=== PATIENT | male | born 1945 | race Caucasian/White ===

== ENCOUNTER 2024-12-01 21:36 | Emergency (ER) | payer MEDICARE, OTHER, SELFPAY ==
[2024-12-01 21:44] VITALS: BP 155/84
[2024-12-01 22:05] LABS: % Eosinophils 8.8 % (0-6); % Immature Granulocytes 0.3 % (0-0.5); % Lymphocytes 33.8 % (20.5-51.1); % Monocytes 9.5 % (1.7-9.3); % Neutrophils 46.6 % (42.2-75.2); Absolute Basophils 0.1 10^3/uL (0-0.2); Absolute Eosinophils 0.7 10^3/uL (0-0.7); Absolute Lymphocytes 2.5 10^3/uL (1.2-3.4); Absolute Monocytes 0.7 10^3/uL (0.1-0.6); Absolute Neutrophils 3.4 10^3/uL (1.4-6.5); Hemoglobin 13.3 g/dL (13.0-18.0); Mean Corp Hgb Conc. 34.1 g/dL (33.0-37.0); Mean Corpuscular Hgb 30.9 pg (27.0-31.0); Mean Corpuscular Volume 90.7 fL (80.0-94.0); Mean Platelet Volume 10.1 fL (7.4-10.4); Nucleated Red Blood Cells % 0 % (-); Platelet Count 221 10^3/uL (130-400); Red Cell Dist. Width 12.9 % (11.5-14.5); White Blood Cell Count 7.4 10^3/uL (4.8-10.8)
[2024-12-01 22:22] LABS: ALT (SGPT) 21 U/L (0-50); AST (SGOT) 22 U/L (17-59); Albumin 4.1 g/dl (3.5-5.0); Alkaline Phosphatase 46 U/L (38-126); Blood Urea Nitrogen 25 mg/dl (9-20); Calcium 9.9 mg/dl (8.4-10.2); Carbon Dioxide 24 mmol/L (22-30); Chloride 111 mmol/L (98-107); Glucose 100 mg/dl (70-99); Potassium 4.8 mmol/L (3.5-5.1); Sodium 140 mmol/L (135-145); Total Bilirubin 0.3 mg/dl (0.2-1.3); Total Protein 6.8 g/dl (6.3-8.2); eGFR > 60.00
[2024-12-01 23:43] VITALS: BP 190/83
[2024-12-02] VITALS: BP 148/92
--- NOTE | 2024-12-02 | ED.GENMED ---
History of Present Illness
General
Chief Complaint: Change in Mental Status
Source: patient and spouse
Exam Limitations: clinical condition and altered mental status
Time Seen by Provider: 12/01/24 23:13
Nursing documentation reviewed up to this point in time: agreed with
History of Present Illness
History of Present Illness:
79-year-old male presents to the emergency department with confusion. Patient was seen by his primary care provider today after discovering a 'mass 'on the side of his neck. His PCP ordered an outpatient ultrasound. Patient was able to drive home
after scheduling the ultrasound appointment. Patient at home, he states that he felt out of it. reported that he is very sluggish with his responses to her questions. Patient was not slurring his words. She did not describe any aphasia. He
just was very slow to answer questions. She states that this is atypical for him. Patient denies headache or blurry vision. Denies fever or chills. Reports no chest pain or shortness of breath. He does complain of the left neck mass.
Review of Systems
Review of Systems
Allergies reviewed?: Yes
All Other Systems: ROS reviewed and negative except as documented in HPI and ROS
Constitutional: Reports no symptoms
EENT: Reports other (Left-sided neck mass)
Respiratory: Reports no symptoms
Cardiac: Reports no symptoms
ABD/GI: Reports no symptoms
: Reports no symptoms
Musculoskeletal: Reports no symptoms
Skin: Reports no symptoms
Neurological: Reports no symptoms
Endocrine: Reports no symptoms
Hematologic/Lymphatic: Reports no symptoms
Psychiatric: Reports no symptoms
Phy Exam
General Physical Exam
General Presentation: well appearing and no apparent distress
General Skin: warm and dry
General Habitus: normal
General Mental: alert
General Hydration: appears well hydrated
ENT Exam
ENT Exam: EOMI, pharynx normal, neck supple and normocephalic
Eye Exam
Eye Exam: PERRL, cornea clear and conjunctiva normal
Cardiovascular Exam
Cardiovascular Exam: regular rate/rhythm, no edema, no murmur and normal peripheral pulses
Pulmonary Exam
Pulmonary Exam: lungs clear, no respiratory distress, no rales, no crackles, no rhonchi, no stridor, no wheezing and no cough
Gastrointestinal Exam
Gastrointestinal Exam: normal bowel sounds, non tender, soft, no organomegaly, no pulsatile mass and non distended
Neurological Exam
Neurological Exam: alert, oriented x3, no motor deficits and speech normal
NIH Stroke Score
Level of Consciousness: 0 - Alert
LOC questions: 0-Answers both correctly
LOC Commands: 0-Performs both correctly
Best Gaze: 0-Normal
Visual Maria: 0=Normal, no visual loss
Facial palsy: 0=Normal, symmetrical
Motor - Right Arm: 0=No drift 10 seconds
Motor - Left Arm: 0=No drift 10 seconds
Motor - Right Le-No drift 5 seconds
Motor - Left Le-No drift 5 seconds
Limb Ataxia: 0-Absent
Sensation: 0-Normal
Best Language: 0-No aphasia
Dysarthria: 0-Normal
Extinction and Inattention: 0-No abnormality
Total Score:: 0
Musculoskeletal Exam
Musculoskeletal Exam: full ROM and no edema
Skin Exam
Skin Exam: normal color, warm/dry, no rash and no petechia
Psychiatric Exam
Psychiatric Exam: normal mood/affect
Course
Orders/Labs/Results
Orders:
Orders
12/01/24 21:52
Complete Blood Count/With Diff Urgent
Comprehensive Metabolic Panel Urgent
12/01/24 23:14
CT Head W/o Iv Contrast Urgent
Comment:
Reason For Exam: Altered mental status, dizziness, stumbling
12/02/24
CT Head & Neck Angio W/wo IV Urgent
Reason For Exam: left neck 'mass', confusion
Abnormal Lab Results
12/01/24
21:52
RBC 4.30 L 10^6/uL
(4.70-6.10)
Absolute Monos (auto) 0.7 H 10^3/uL
(0.1-0.6)
Monocytes % 9.5 H %
(1.7-9.3)
Eosinophils % 8.8 H %
(0-6)
Chloride 111 H mmol/L
(98-107)
BUN 25 H mg/dl
(9-20)
Glucose 100 H mg/dl
(70-99)
12/01/24 21:52
12/01/24 21:52
Vital Signs
Initial and Last Documented VS:
Initial Vital Signs
Temp Pulse Resp BP Pulse Ox
98.4 F 64 16 155/84 95
12/01/24 21:44 12/01/24 21:44 12/01/24 21:44 12/01/24 21:44 12/01/24 21:44
Last Documented Vital Signs
Temp Pulse Resp BP Pulse Ox
98.4 F 60 14 157/82 97
12/01/24 21:44 12/02/24 02:40 12/02/24 01:00 12/02/24 02:40 12/02/24 02:40
*Critical Care Note
Total Time (30-74mins, 75-104mins- exclusive of procedures): Not Applicable
Update Note
Update Note:
NAME: JORGE HOPKINS
DATE OF EXAM: 12/02/2024
Patient No: [id number]
Physician: BELGICA^Maddi
Date of : 1945
Past Medical History (entered by Technologist):
Reason For Exam (entered by Technologist):
Other Notes (entered by Technologist): Pt states he found a 'nodule' on the left side of his neck, went to his PCP this afternoon, who ordered a carotid US. Pt came home and 'felt out of it', per took longer time to respond and seemed to be
staring off into space. Pt also fell in the den by missing a step. Pt denies dizziness, denies headache. Denies any weakness/numbness/tingling.
Additional Information (per Vision Radiologist):
CTA HEAD, CTA NECK
IMPRESSION:
CTA HEAD:
No large vessel occlusion or critical stenosis within the anterior or posterior circulation.
CTA NECK:
No large vessel occlusion or critical stenosis within the anterior or posterior circulation.
At least 70% narrowing at the origin of the right internal carotid artery secondary to calcified and noncalcified atherosclerotic plaque.
Please finalized at 2:04 AM ET
Discussed CTA with patient and . He states that symptoms have resolved. He went to the bathroom and had no issues. Wishes to be discharged home. I did offer him admission for further testing. At this time he refuses. He does have a family
doctor's appointment scheduled for the near future. I did discuss return to ER instructions at length. He and his have no further questions. Being discharged in improved condition.
ED Attending Note
-
Portions of this chart may have been created with voice recognition software.� Occasional wrong word or��sound alike� substitutions may have occurred due to the inherent limitations of voice recognition software.
Discharge Plan
Departure
Patient Disposition: Home (Routine Discharge)
Date of Disposition: 12/02/24
Time of Disposition: 02:35
Patient with high blood pressure during this ER visit?: Yes
Discharge Problem:
Neck complaint
Instructions: Fatigue (DC)
Referrals:
Noah Bustamante MD [Active] -
Johnnie Donahue MD [Family Provider] -
Activity Restrictions/Additional Instructions:
Please keep your appointment for outpatient ultrasound.
Thank You for choosing [facility].
It was a pleasure meeting you and taking part in your care. We hope for your continued healing and wellness.
Please read discharge instructions in their entirety. However, they are for general education and may not describe your exact diagnosis at discharge. Information on your ER visit and medical conditions were discussed with you along with appropriate
follow up information...
If indicated, please take your medications as instructed and indicated on discharge paperwork.
Please schedule a follow up appointment as directed. Call to schedule an appointment
Please return to the emergency department with ANY change in, persisting, or worsening of symptoms. If any of your symptoms do not improve, or persist, or become more severe within 6-12 hours, please return to the emergency department for further
care.
Please return to the emergency department if you develop a headache, neck pain/stiffness, fever greater than 100.4F, chest pain, shortness of breath, persistent nausea, vomiting, slurred speech, difficulty walking, numbness/tingling, weakness, signs
of infection or any other symptoms that are worrisome to you.
If you have any questions or concerns please do not hesitate to call the Hospital at or E-mail me directly at [email or web address]
Interventions
Interventions:
*Risk Screen - Suicide Last Done: 12/01/24 21:48
*General Assessment Last Done: 12/02/24 02:40
*Neglect/Abuse Screening Last Done: 12/01/24 21:48
*ED- Fall Risk Assessment Last Done: 12/02/24 02:40
*ED COVID-19 Vaccine History Last Done: 12/02/24 02:40
*Nursing Disposition Last Done: 12/02/24 02:40
ED-Skin Assessment Last Done: 12/01/24 22:00
ED- Pulmonary Assessment Last Done: 12/02/24 02:40
ED-Psychological Assessment Last Done: 12/02/24 02:40
ED- Neurological Assessment Last Done: 12/01/24 22:00
ED-Musculoskeletal Assessment Last Done: 12/01/24 22:00
ED- Cardiac Assessment Last Done: 12/02/24 02:40
ED Swallowing Screen Last Done: 12/02/24 02:48
Discharge Date and Time
Discharge Date/Time: 12/02/24 02:49
Print Language: VIETNAMESE
[2024-12-02 01:00] VITALS: BP 156/85
[2024-12-02 02:40] VITALS: BP 157/82
== END 2024-12-02 02:49 | disposition home or self-care (01) ==
LOC: EMR 21:36
PROVIDERS: Emergency Medicine; EMERGENCY PHYSICIAN Student in an Organized Health Care Education/Training Program; FAMILY PHYSICIAN Internal Medicine
DX: R22.1 Localized swelling, mass and lump, neck (principal); W10.9XXA Fall (on) (from) unspecified stairs and steps, initial encounter; R03.0 Elevated blood-pressure reading, without diagnosis of hypertension
CPT/HCPCS: 99285; 70450; 70496; 70498; 80053; 85025; Q9967

== ENCOUNTER 2024-12-04 14:08 | Inpatient (IN) | payer MEDICARE, OTHER, SELFPAY ==
[2024-12-03] VITALS (7 sets, daily range): BP systolic 125–176; BP diastolic 71–128; PULSE 60–85; BMI 19.4
[2024-12-03 12:43] LABS: % Basophils 1.1 % (0-2); % Eosinophils 4.2 % (0-6); % Immature Granulocytes 0.5 % (0-0.5); % Lymphocytes 18.6 % (20.5-51.1); % Neutrophils 69.6 % (42.2-75.2); Absolute Basophils 0.1 10^3/uL (0-0.2); Absolute Eosinophils 0.3 10^3/uL (0-0.7); Absolute Lymphocytes 1.2 10^3/uL (1.2-3.4); Absolute Monocytes 0.4 10^3/uL (0.1-0.6); Absolute Neutrophils 4.5 10^3/uL (1.4-6.5); Blood Urea Nitrogen 25 mg/dl (9-20); Calcium 10.2 mg/dl (8.4-10.2); Carbon Dioxide 23 mmol/L (22-30); Chloride 107 mmol/L (98-107); Glucose 131 mg/dl (70-99); Hematocrit 44.6 % (39.0-52.0); Hemoglobin 15.1 g/dL (13.0-18.0); Mean Corp Hgb Conc. 33.9 g/dL (33.0-37.0); Mean Corpuscular Hgb 30.8 pg (27.0-31.0); Mean Corpuscular Volume 90.8 fL (80.0-94.0); Nucleated Red Blood Cells % 0 % (-); Red Blood Cell Count 4.91 10^6/uL (4.70-6.10); Red Cell Dist. Width 13.1 % (11.5-14.5); Sodium 140 mmol/L (135-145); White Blood Cell Count 6.5 10^3/uL (4.8-10.8); eGFR > 60.00
--- NOTE | 2024-12-03 16:24 | ED.GENMED ---
History of Present Illness
General
Chief Complaint: Change in Mental Status
Source: patient
Exam Limitations: none
Time Seen by Provider: 12/03/24 16:02
Nursing documentation reviewed up to this point in time: agreed with
History of Present Illness
History of Present Illness:
Patient to ED with complaint of increasing confusion. He was seen in ED 2 days ago for same, offered admission but declined. states confusion is worsening. Today he was unable to dress without assistance---trying to put both legs into same
pant leg, unable to tie his shoes. Brought to ED by spouse and son. He is awake and alert but states he doesnt 'feel right', knows that he is forgetting things that should come easy to him. Denies fever/chills, recent illness. No n/v/d. No SOB,
CP/pressure. No headache or dizziness
Past History
Past History
ED Past Medical History: Asthma and Hypercholesterolemia (new, no current medication)
ED Past Surgical History: Other (nasal polyp surgery, prostate surgery)
Social History
Tobacco: Non-smoker
Alcohol: None
Drug: None
Personal:
Living: with family
Review of Systems
Review of Systems
Allergies reviewed?: Yes
All Other Systems: ROS reviewed and negative except as documented in HPI and ROS
Constitutional: Reports no symptoms
EENT: Reports no symptoms
Respiratory: Reports no symptoms
Cardiac: Reports no symptoms
ABD/GI: Reports no symptoms
: Reports no symptoms
Musculoskeletal: Reports no symptoms
Skin: Reports no symptoms
Neurological: Reports other (increasing confusion and forgetfulness)
Psychiatric: Reports no symptoms
Phy Exam
General Physical Exam
General Presentation: well appearing and no apparent distress
General age: appears stated age
General Skin: warm and dry
General Habitus: normal
General Mental: alert
Cardiovascular Exam
Cardiovascular Exam: regular rate/rhythm and no edema
Pulmonary Exam
Pulmonary Exam: lungs clear and no respiratory distress
Neurological Exam
Neurological Exam: alert, oriented x3, CN II-XII intact, no motor deficits, no sensory deficits and speech normal
NIH Stroke Score
Level of Consciousness: 0 - Alert
LOC questions: 0-Answers both correctly
LOC Commands: 0-Performs both correctly
Best Gaze: 0-Normal
Visual Maria: 0=Normal, no visual loss
Facial palsy: 0=Normal, symmetrical
Motor - Right Arm: 0=No drift 10 seconds
Motor - Left Arm: 0=No drift 10 seconds
Motor - Right Le-No drift 5 seconds
Motor - Left Le-No drift 5 seconds
Limb Ataxia: 0-Absent
Sensation: 0-Normal
Best Language: 0-No aphasia
Dysarthria: 0-Normal
Extinction and Inattention: 0-No abnormality
Total Score:: 0
Musculoskeletal Exam
Musculoskeletal Exam: full ROM and neuro vasc intact
Skin Exam
Skin Exam: normal color, warm/dry and no rash
Psychiatric Exam
Psychiatric Exam: normal mood/affect
Course
Orders/Labs/Results
Orders:
Orders
12/03/24 12:23
Basic Metabolic Panel Urgent
Complete Blood Count/With Diff Urgent
Erythrocyte Sed Rate Urgent
Comment: ADDON
12/03/24 Dinner
Cholesterol Lowering
At Your Request: Full Participation
Does patient need a safe tray?: No
12/03/24 16:39
Urinalysis Reflex To Culture Urgent
Date Specimen was Collected: 12/04/24
Time Specimen was Collected: 05:52
12/03/24 17:44
Admit/Transfer Patient As Directed
Co-Sign Provider:
Level of Care: Observation services
Assign to:: Telemetry
Physician / Group: Ti
Diagnosis: Memory loss, carotid stenosis
Reason for Telemetry: Arrhythmia
Date to Stop Telemetry: 12/06/24
Time to Stop Telemetry: 11:00
12/03/24 17:45
PRN Pain Medication Management As Directed
May give lesser potent ordered pain med per pt: Yes
preference::
Protocol:: Medication orders for pain may be administered in a
manner that supports deferring to patient preference
when the pt is:
- Requesting an ordered lesser potent pain medication.
Least to most potent pain medications are defined
as: acetaminophen < NSAID < tramadol < opioids
(morphine, oxycodone, hydromorphone).
- Requesting a lesser dose of the same medication IF
ORDERED.
- Requesting a less intrusive route of administration
if both routes are prescribed by the provider (PO <
IV).
12/03/24 17:46
Code Status As Directed
Resuscitation Status: Do not resuscitate
Reached after discussion with pt or family/Healthcare POA: Yes
DNR Bracelet Application ONCE
12/03/24 19:48
Acetaminophen [Tylenol] 650 mg PO Q6HPRN PRN
Albuterol [ProAIR HFA INHALER] 2 puff INH R Q4HPRN PRN
Aspirin Low Dose EC [Aspir Low (Enteric Coated)] 81 mg PO DAILY
Enoxaparin Sodium [Lovenox] 40 mg SC QPM
Rosuvastatin Calcium [Crestor] 10 mg PO QPM
12/03/24 19:48
Add On- LAB Routine
Tests Added?: TSH, B12, folate, ESR, RPR
NEUROLOGY CONSULT Routine
Consulting Provider: Huang Ford
Was physician already notified: Yes
SURGICAL CONSULT Routine
Consulting Provider: Beena Acosta
Was physician already notified: Yes
Activity As Directed
Activity Level: Ambulate
Orthostatic Vital Signs As Directed
Orthostatic VS Frequency: Daily
DX Deep Vein Thrombosis Video Routine
12/03/24 20:00
Flush (0.9% Sodium Chloride) [Flush (Nss)] See Dose Instructions IV PER PROTOCOL
Fluticasone/Salmeterol 45/21 [Advair Hfa 45/21 Mcg Inhaler] 2 puff INH R BID
12/03/24 20:18
Pt Screening Request from Jt Routine
12/04/24
Electrocardiogram (*1) Stat
Reason for Study: Chest Pain
Comment: DONE NO ORDER ENTERED
12/04/24 05:57
Urine Microscopic Reflex Cult Urgent
12/04/24 06:55
Folate Routine
Lipid Profile [Cardiovascular Evaluation] IN AM
Syphilis/T. pallidum Ab Reflex Routine
TSH Routine
Vitamin B12 Routine
Comment: FOL
12/04/24 08:00
Montelukast Sodium [Singulair] 10 mg PO DAILY
12/04/24 08:30
Request for Physical Therapy [NOTICE] Routine
12/04/24 10:20
MRI Brain [MR Brain Without Contrast] Routine
Comment:
Reason For Exam: confusion, carotid stenosis
Recent pill cam endoscopy?: No
12/04/24 10:21
Physical Therapy Consult [Pt Eval And Treat] Routine
Activity Level: Ambulate
12/04/24 10:26
OT Consult [Ot Eval And Treat] Routine
12/06/24 11:00
DC Protocol for Telemetry ONCE
Abnormal Lab Results
12/03/24 12/04/24 12/04/24
12:23 05:57 06:55
Lymphocytes % 18.6 L %
(20.5-51.1)
ESR 25 H mm/hour
(0-20)
BUN 25 H mg/dl
(9-20)
Glucose 131 H mg/dl
(70-99)
Total Cholesterol 229 H mg/dl
(50-199)
Urine Albumin (Reflex) 1+ A
(Neg - Trace)
12/03/24 12:23
12/03/24 12:23
Vital Signs
Initial and Last Documented VS:
Initial Vital Signs
Temp Pulse Resp BP Pulse Ox
97.8 F 74 18 152/88 98
12/03/24 12:11 12/03/24 12:11 12/03/24 12:11 12/03/24 12:11 12/03/24 12:11
Last Documented Vital Signs
Temp Pulse Resp BP Pulse Ox
98.0 F 73 18 127/70 97
12/04/24 11:20 12/04/24 11:20 12/04/24 11:20 12/04/24 11:20 12/04/24 11:20
*Critical Care Note
Total Time (30-74mins, 75-104mins- exclusive of procedures): Not Applicable
Update Note
Update Note:
Patient to ED with complaint of increasing forgetfulness and confusion. Seen in ED 2 nights ago for same, declined admission at that time. Attemtped to follow up with neurololgy but next availabe appt is for Aug 2025. Family reports symptoms are
worsening.Forgetting simple routine tasks. WIll admit to hospitalist sasha for change in mental status.
ED Attending Note
-
Portions of this chart may have been created with voice recognition software.� Occasional wrong word or��sound alike� substitutions may have occurred due to the inherent limitations of voice recognition software.
Discharge Plan
Departure
Patient Disposition: Admit
Date of Disposition: 12/03/24
Time of Disposition: 16:38
Presentation/result/management discussed w/ accepting MD/DO: Hospitalist
Patient with high blood pressure during this ER visit?: No
Condition: Fair
Covid-19: Not Applicable
Discharge Problem:
Change in mental status
Interventions
Interventions:
*Risk Screen - Suicide Last Done: 12/03/24 12:11
*General Assessment Last Done: 12/03/24 12:11
*ED COVID-19 Vaccine History Last Done: 12/03/24 20:13
*Nursing Disposition Last Done: 12/03/24 19:50
ED- Neurological Assessment Last Done: 12/03/24 15:32
ED- Cardiac Assessment Last Done: 12/03/24 15:32
Discharge Date and Time
Discharge Date/Time: 12/03/24 19:51
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
[2024-12-03 20:02] LABS: Erythrocyte Sed Rate 25 mm/hour (0-20)
--- NOTE | 2024-12-03 20:15 | PTCARENOTE ---
Received patient from ED via stretcher. Patient ambulated from stretcher to bed with minimal assistance. AAOx3, no current complaints of pain. Oriented patient to room and placed call michele within reach.
[2024-12-03] MEDS: CRESTOR 10 MG PO (20:38)
[2024-12-03] MEDS: ASPIR LOW (ENTERIC COATED) 81 MG PO (20:38)
[2024-12-03] MEDS: LOVENOX 40 MG SC (20:39)
[2024-12-03] MEDS: ADVAIR HFA 45/21 MCG INHALER 2 PUFF INH (21:39)
[2024-12-04 03:40] VITALS: BP 138/76
[2024-12-04 06:07] LABS: Urine Albumin 1+ (Neg - Trace); Urine Bilirubin Negative (Negative); Urine Character Clear (Clear); Urine Color Yellow; Urine Glucose Negative (Negative); Urine Ketone Negative (Negative); Urine Leukocyte Negative (Negative); Urine Nitrite Negative (Negative); Urine Occult Blood Negative (Negative); Urine Specific Gravity 1.025 (<1.030); Urine Urobilinogen Negative (Neg - 1+)
[2024-12-04 06:17] LABS: Urine Red Blood Cell None Seen /HPF (0-2); Urine Squamous Cell None seen /LPF (Few); Urine White Cell 0-2 /HPF (0-5)
--- NOTE | 2024-12-04 08:09 | CON.VAS ---
Consultation
Consultation Request
Date/Time Consultation Performed: 12/04/24 7:30
Performing Provider: Da
Reason for Consultation: carotid stenosis
Medical History
-
Chief Complaint: Confusion
History of Present Illness:
79-year-old male with PMH significant for hyperlipidemia, asthma, and BPH presented to the ER yesterday for feeling 'off'/confused. He states he noted on Saturday of this week (3 days ago) he went to see his PCP regarding a left neck lymph node
palpable. While there he became somewhat confused and disoriented. Then when driving home he was more confused. When he got home, he yelled to his that he felt off. He then was trying to walk down some stairs and fell a little bit. He
denies any unilateral numbness or weakness, no episodes of speech dysarthria, no amaurosis. His initial presenting symptoms have completely resolved. He has no residual confusion or disorientation.
On exam/he is awake and alert. Head is normocephalic and atraumatic. Eyes are anicteric. Neck is soft without jugular venous distention. Breathing is unlabored. Neurologically no focal deficits. Feet are warm with palpable pedal pulses.
CT angiogram reviewed. High-grade left proximal internal carotid artery stenosis.
Past Medical History
Past Medical History: Other (Hyperlipidemia, Asthma, BPH)
Past Surgical History: Other (TURP)
Social History
Tobacco: Non-Smoker
Alcohol: Occasional
Drug: None
Living: With Family
Employment: Retired
Family History
Family History: Reviewed & Not Pertinent
Allergies / Home Medications
Allergy/AdvReac Type Severity Reaction Status Date / Time
No Known Allergies Allergy Unverified 12/01/24 21:44
�Medication �Instructions �Recorded �Confirmed �Type
Mometasone Capsules 2mg 2 mg intranasal BID Allergies 12/03/24 12/03/24 History
Mupirocin Capsules 30mg 30 mg intranasal BID Infection 12/03/24 12/03/24 History
aspirin 81 mg tablet,delayed 81 mg PO DAILY Blood Clot 12/03/24 12/03/24 History
release Prevention/Tx
fluticasone furoate 200 1 inh inhalation R DAILY 12/03/24 12/03/24 History
mcg-vilanterol 25 mcg/dose Lung/Breathing Issues
inhalation powder (Breo Ellipta)
loratadine 10 mg tablet (Claritin) 10 mg PO DAILYPRN PRN allergies 12/03/24 12/03/24 History
montelukast 10 mg tablet 10 mg PO HS Allergies 12/03/24 12/03/24 History
(Singulair)
Review of Systems
-
History Source: Patient
All other systems: Negative unless noted
Constitutional: Reports No Symptoms
EENT: Reports No Symptoms
Respiratory: Reports No Symptoms
Cardiac: Reports No Symptoms
Vascular: Denies Leg Pain / Claudication
Abdomen/GI: Reports No Symptoms
: Reports No Symptoms
Musculoskeletal: Reports No Symptoms
Skin: Reports No Symptoms
Neurological: Reports No Symptoms
Endocrine: Reports No Symptoms
Physical Exam
Vital Signs
Temp Pulse Resp BP Pulse Ox
98.6 F 67 20 138/76 98
12/04/24 03:40 12/04/24 03:40 12/04/24 03:40 12/04/24 03:40 12/04/24 03:40
Lab Results
12/03/24 12:23
12/03/24 12:23
Physical Exam
General: No Apparent Distress
HEENT: Normocephalic and Atraumatic
Respiratory: Non Labored Respirations
Cardiac: Negative JVD
GI: Soft, Non Tender and Non Distended
Musculoskeletal: No Clubbing and No Cyanosis
Skin: Warm
Neuro: Awake, Alert, Oriented and No Motor Deficits
Psych: Calm
Assessment / Plan
-
Plan/ Likely asymptomatic left carotid stenosis. Relatively high-grade with soft plaque as well. So may benefit from revascularization. I do not think this would have resulted in his confusion/disorientation symptoms. However for completeness
sake would recommend a neurology evaluation to determine this, as well as an MRI of the brain. If those are all clear and not suggestive of any lateralizing left carotid related symptoms, then I can discuss elective carotid revascularization with
him in the outpatient setting.
Data Reviewed
-
CT Scan: Discussed with Patient
Labs: Labs Reviewed by me
[2024-12-04] MEDS: ADVAIR HFA 45/21 MCG INHALER 2 PUFF INH (08:10)
--- NOTE | 2024-12-04 08:12 | W.PN.UPDATE ---
Update Note
Progress Note Update
Seen and examined with MANAGER CABLE. Full consultation to follow. 79-year-old male who noted on Saturday of this week (3 days ago) he went to see his PCP regarding a left neck lymph node palpable. While there he became somewhat confused and disoriented.
Then when driving home he was more confused. When he got home, he yelled to his that he felt off. He then was trying to walk down some stairs and fell a little bit. He denies any unilateral numbness or weakness, no episodes of speech
dysarthria, no amaurosis. His initial presenting symptoms have completely resolved. He has no residual confusion or disorientation.
On exam/he is awake and alert. Head is normocephalic and atraumatic. Eyes are anicteric. Neck is soft without jugular venous distention. Breathing is unlabored. Neurologically no focal deficits. Feet are warm with palpable pedal pulses.
CT angiogram reviewed. High-grade left proximal internal carotid artery stenosis.
Plan/ Likely asymptomatic left carotid stenosis. Relatively high-grade with soft plaque as well. So may benefit from revascularization. I do not think this would have resulted in his confusion/disorientation symptoms. However for completeness
sake would recommend a neurology evaluation to determine this, as well as an MRI of the brain. If those are all clear and not suggestive of any lateralizing left carotid related symptoms, then I can discuss elective carotid revascularization with
him in the outpatient setting.
[2024-12-04] MEDS: SINGULAIR 10 MG PO (08:26)
[2024-12-04] MEDS: ASPIR LOW (ENTERIC COATED) 81 MG PO (08:26)
[2024-12-04 08:46] LABS: HDL Cholesterol 96 mg/dl; LDL Cholesterol, Calculated 116 mg/dl; Total Cholesterol 229 mg/dl (50-199); Triglyceride 89 mg/dl (10-149); Very Low Density Lipoprotein 17 mg/dl (0-30)
[2024-12-04 08:53] VITALS: BP 114/73; BP 123/7; BP 123/71; BP 123/78; PULSE 102; PULSE 71; PULSE 73
[2024-12-04 09:22] LABS: TSH 3.54 uIU/ml (0.47-4.68)
[2024-12-04 09:51] LABS: Folate 14.2 ng/ml (2.76-20); Vitamin B12 389 pg/ml (239-931)
[2024-12-04 11:20] VITALS: BP 127/70
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
[2024-12-04 14:05] LABS: Syphilis/T. pallidum Ab Reflex Negative (Negative)
[2024-12-04 14:15] VITALS: BP 127/70; PULSE 73
--- NOTE | 2024-12-04 14:18 | W.PN.HOSP.TC ---
Today's Communication/Plan
-
PT/OT
Discharge
Assessment / Plan
Assessment / Plan
Gen-AAOx3, NAD
HEENT-NC, AT, anicteric, clear oral mm
Neck-supple
CV-reg, no M, +S1/S2
Lungs-clear B/L
Abd-soft, NT, ND
Ext-no edema
Musculoskeletal-no cyanosis, clubbing
Skin-warm and dry
Neuro-grossly non-focal
Psych-calm, cooperative
Numerous acute/subacute left-sided cerebral infarcts -noted on brain MRI today. Involving left MCA as well as left anterior cerebral artery distribution. Likely embolic due to known left carotid stenosis.
Appreciate vascular surgery input. Plan for carotid revascularization on Saturday as outpatient.
Aspirin and Plavix per neurology. Increase rosuvastatin to 20 mg daily.
Await PT/OT.
LDL 116, total cholesterol 229, HDL 96, triglycerides 89.
Left carotid stenosis -as above.
Elevated blood pressure -suspect undiagnosed essential hypertension. Recommend close follow-up with PCP, monitor blood pressures at home. Blood pressure today improved compared to yesterday. Hold off on starting antihypertensives in the setting
of acute stroke.
Mild intermittent asthma -stable.
BPH -s/p TURP.
DNR
Dispo -possible discharge later today after assessment by PT/OT. Outpatient follow-up for carotid revascularization next week.
Recommend patient abstain from driving until assessed as an outpatient by OT.
32 minutes spent in discharge process.
Anticipated Discharge: Today
Subjective/Interval History
-
Date of Service: December 04, 2024
Patient seen and examined. No new complaints.
Objective Data
-
Vital Signs:
Vital Signs
Temp Pulse Resp BP Pulse Ox
98.0 F 73 18 127/70 97
12/04/24 11:20 12/04/24 11:20 12/04/24 11:20 12/04/24 11:20 12/04/24 11:20
I&O
12/03/24 12/04/24 12/05/24
06:59 06:59 06:59
Intake Total 480 / 480 480 / 480
Output Total 300 / 300
Balance 180 / 180 480 / 480
Review of Systems
-
History Source: Patient
All other systems: Reviewed and negative
[2024-12-04] MEDS: PLAVIX 75 MG PO (14:23)
[2024-12-04] MEDS: VITAMIN B-12 1000 MCG PO (14:23)
--- NOTE | 2024-12-04 14:45 | W.DS.TRANS ---
DC Summary - Central Service Technician
-
Discharge Instructions:
Discharge Diagnosis/Procedures Acute left-sided strokes
Diet Low Cholesterol,Low Fat
Activity As tolerated
Driving Restrictions Not until seen by your Dr
Bathing Restrictions None
Instructions:
Stand-Alone Forms:
Changes to Home Medications: No
Discharge Medications:
DC Medications w/original date entered in [employer]
aspirin 81 mg tablet,delayed release 81 mg PO DAILY Blood Clot Prevention/Tx 12/03/24
fluticasone furoate 200 mcg-vilanterol 25 mcg/dose inhalation powder (Breo Ellipta) 1 inh inhalation R DAILY Lung/Breathing Issues 12/03/24
loratadine 10 mg tablet (Claritin) 10 mg PO DAILYPRN PRN allergies 12/03/24
montelukast 10 mg tablet (Singulair) 10 mg PO HS Allergies 12/03/24
clopidogrel 75 mg tablet 75 mg PO DAILY #21 tabs 12/04/24
cyanocobalamin (vitamin B-12) 1,000 mcg tablet (Vitamin B-12) 1,000 mcg PO DAILY #60 tabs 12/04/24
rosuvastatin 20 mg tablet 20 mg PO QPM #30 tabs 12/04/24
Home Medication Changes
Pending Results: No
[2024-12-04 15:13] VITALS: BP 137/82; O2SAT 98
[2024-12-04 15:40] VITALS: BP 169/87
== END 2024-12-04 15:58 | disposition home or self-care (01) | DRG 66 ==
LOC: 4 EAST ACU 14:08
PROVIDERS: Emergency Medicine; Nurse Practitioner; ADMITTING PHYSICIAN Hospitalist; CONSULT PHYSICIAN Psychiatry & Neurology Clinical Neurophysiology; EMERGENCY PHYSICIAN Student in an Organized Health Care Education/Training Program; FAMILY PHYSICIAN Internal Medicine
DX: I63.422 Cerebral infarction due to embolism of left anterior cerebral artery (principal); I65.22 Occlusion and stenosis of left carotid artery; J45.909 Unspecified asthma, uncomplicated; N40.0 Benign prostatic hyperplasia without lower urinary tract symptoms; Z79.82 Long term (current) use of aspirin; W19.XXXA Unspecified fall, initial encounter; E78.00 Pure hypercholesterolemia, unspecified; E78.49 Other hyperlipidemia; Z79.899 Other long term (current) drug therapy
CPT/HCPCS: 70551; 80048; 80061; 81003; 81015; 82607; 82746; 84443; 85025; 85652; 86780; 93005; 94640; 97129; 97163; 97166; 97535; 99284

== ENCOUNTER 2024-12-10 08:27 | Inpatient (IN) | payer MEDICARE, OTHER, SELFPAY ==
[2024-12-10] VITALS (14 sets, daily range): BP systolic 110–160; BP diastolic 55–76; BMI 21.1; BMI 19.8
[2024-12-10 09:53] LABS: Hematocrit 39.3 % (39.0-52.0); Hemoglobin 13.4 g/dL (13.0-18.0); Mean Corp Hgb Conc. 34.1 g/dL (33.0-37.0); Mean Corpuscular Hgb 31.2 pg (27.0-31.0); Mean Corpuscular Volume 91.6 fL (80.0-94.0); Mean Platelet Volume 9.7 fL (7.4-10.4); Platelet Count 252 10^3/uL (130-400); Red Blood Cell Count 4.29 10^6/uL (4.70-6.10); Red Cell Dist. Width 12.7 % (11.5-14.5); White Blood Cell Count 6.5 10^3/uL (4.8-10.8)
[2024-12-10 10:12] LABS: INR 0.96; PT 13.2 Sec (11.4-14.6)
[2024-12-10 10:13] LABS: APTT 24.7 Sec (23.4-35.0)
[2024-12-10] MEDS: PERIDEX 0.12% ORAL RINSE 15 ML PO (10:13)
[2024-12-10] MEDS: BACTROBAN NASAL 1 GRAM NASAL (10:13)
--- NOTE | 2024-12-10 12:00 | W.PN.UPDATE ---
Update Note
Progress Note Update
Discussed with patient and his rationale for left carotid endarterectomy. Discussed findings on CT angiogram of the head and neck, and discussed MRI findings as well. Symptomatic left carotid artery stenosis with multiple infarctions left
hemisphere. No residual symptoms at this time. Discussed procedure of left carotid endarterectomy. Discussed anticipated recovery/outcomes. Discussed risks including but not limited to bleeding, infection, cardiac complication/CO, cranial nerve
injury, stroke (1 to 2%). Patient understands all wishes to proceed with left carotid endarterectomy.
--- NOTE | 2024-12-10 12:01 | W.SUR.PREOP ---
Pre-Operative Surgical Note
-
I have examined this patient prior to the performance of the scheduled procedure.
The patient's condition is unchanged from the time of the current History and
Physical and the patient is able to undergo the scheduled procedure.
--- NOTE | 2024-12-10 14:25 | W.SUR.POST ---
Surgical Immediate Post Op
Note
Pre Op Diagnosis: Carotid stenosis
Post Op Diagnosis: Same
Procedure Performed: Left carotid endarterectomy with bovine pericardial patch angioplasty and EEG monitoring
Primary Surgeon: Da
Assist: Jim OSORIO
Anesthesia: General
Estimated Blood Loss: 50cc
Fluids: See anesthesia flow sheet
Drains/Shunts: None
Specimens/Cultures: Carotid plaque
Doppler/Duplex/Angio (Y/N): Y
Complications: None
Operative Findings: woke from anesthesia moving all extremities
--- NOTE | 2024-12-10 14:45 | OR.RPT ---
Operative Report
Operative Report
PROCEDURE DATE: 12/10/2024
Preoperative diagnosis: Symptomatic critical left carotid artery stenosis.
Postoperative diagnosis: Same
Procedure: Left carotid endarterectomy with bovine pericardial patch angioplasty and intraoperative EEG/SSEP monitoring. Extensive dissection procedure/prolonged dissection of carotid/carotid bifurcation that was encased in inflammatory rind (november
qualify for modifier 22).
Surgeon: Da
Automation Tester: MARY Fernandez, required for all aspects of procedure including assistance with traction/countertraction, following a suture line, assistance with closure.
Complications: None
Anesthesia: General
Indications for procedure:
Symptomatic left carotid stenosis. MRI demonstrated infarcts. Severe mixed plaque stenosis proximal left ICA. Risk/benefits/alternatives of left carotid endarterectomy fully discussed. He understood all wished to proceed.
Description of procedure:
Patient was identified brought to the operating room placed on the table in supine position. After the adequate administration of anesthesia and perioperative antibiotics he was prepped and draped in the standard surgical fashion. A standard
preoperative timeout was undertaken and everybody was in agreement the plan. A standard longitudinal incision was made in the left neck that was carried through the skin subcutaneous tissue. Using the electrocautery dissection was carried through
the platysma muscle layer and then alongside the anterior medial border of the sternocleidomastoid muscle. Then using a combination of sharp dissection with the Metzenbaum scissors and electrocautery I dissected along the anterior medial border of
the internal jugular vein. The common facial vein branch was ligated between silk ties and then divided. At the superior aspect of the vein but anterior to/superficial to the vein there was more redundant fatty tissue than usual. Some of this may
have been parotid tissue but I was not quite that high. Any vessels were ligated between clips and divided. I then deepened my retraction. The common carotid artery was identified and carefully dissected away from the surrounding structures take
great care to avoid any injury to the structures. This proved to be extremely challenging. The vessel was encased in a thick inflammatory rind. The vagus nerve was carefully identified, and had to be carefully teased off the artery but was
strongly adherent as it was somewhat encased in this inflammatory process. It dissected almost like scarred tissue, necessitating prolonged careful dissection. Once I chiseled away the inflammatory rind, and had carefully teased off the vagus
nerve, a vessel loop was passed around it which was double looped, but not yet tightened. I then continued my dissection up the common carotid artery to the bulb staying only on the anterior surface of the carotid artery. Then I carried the
dissection up to the internal carotid artery and then to the distal internal carotid artery. Again prolonged dissection was undertaken due to this inflammatory round. I identified what appeared to be the hypoglossal nerve. Tissue structures were
slightly challenging to make out again due to the severe inflammatory nature of the tissues. I identified where the internal carotid was soft and carefully circumferentially dissected the internal carotid artery with minimal mobilization and passed
a vessel loop around it. The patient was given an appropriate dose of heparin 5500 units. Next I dissected the anterior surface of the external carotid artery and superior thyroid branches. There was an additional branch adjacent to the superior
thyroid branch that was also controlled with Vesseloops. These were then carefully circumferentially dissected with minimal mobilization and vessel loops passed around these which were double looped but not yet tightened. After 3 minutes of
heparin circulation time and confirmation of optimization of the blood pressure with my anesthesiology colleagues, I clamped the distal internal carotid artery where it was soft. There was no immediate EEG or SSEP changes. After 1 minute of test
clamp time there was no changes noted. Therefore at this point, the vessel loops on the external carotid artery and superior thyroid branches (and other branch) were tightened and the common carotid artery was clamped where it was soft proximally.
An arteriotomy was made on the common carotid artery with an 11 blade and extended using a Quiñonez scissor. I extended the arteriotomy onto the mid to distal internal carotid artery. There was severe plaque at the bifurcation onto the internal
carotid artery that was mixed in nature. The central portion was friable, and more oatmeal consistency. It was a mix of friable calcified shard like plaque along with central more necrotic type plaque. Clearly appeared to be the source of his
recent symptomatology. A Watts was then used to endarterectomized the plaque. An endarterectomy plane was created, and the plaque was then endarterectomized. Distally I feathered the plaque out to a nice clean endpoint in the distal internal
carotid artery. Next I endarterectomized the intima back to normal intima in the common carotid artery, and the intima was cut flush there. I then grasped the plaque and everted plaque out of the origin of the external carotid artery. This proved
to be very challenging. There was continued backbleeding from the external carotid artery even with my Vesseloops type. I tried using forceps and hemostat to try to get any plaque and plaque debris out of the origin of the external carotid artery.
I did this until the origin looked clean. The plaque was then sent off for specimen. The origin of the external carotid artery was again carefully visualized and any fine debris were removed with fine forceps. Proximal and distal endpoints on
the internal and common carotid were then carefully inspected. Any fine debris was removed with fine forceps, and the intima was noted to be nicely adherent proximally and distally. Next any fine debris were removed throughout the endarterectomy
bed with fine forceps. There was significant amount of debris, more than usual due to the nature of the plaque. However I meticulously removed any residual debris. I then flushed heparinized saline. I was satisfied. Then, I used a bovine
pericardial patch to sew a patch angioplasty with a running 6-0 Prolene suture. Prior to completing and tying down my suture line, I backbled sequentially each branch and reclamped each branch prior to unclamping the next branch. I then irrigated
with heparinized saline. Then I completed and tied down my suture line. We then restored flow in the common carotid and external carotid arteries. Finally, we released flow in the internal carotid artery. There was excellent pulsatile flow in
all 3 vessels. There was an excellent Doppler signal in the internal carotid artery distal to the patch with a good normal low resistance Doppler signal. There was a good Doppler signal in the external carotid artery as well. A few 6-0 Prolene
[id number] sutures were placed along any bleeding points along the suture line. Protamine was given to reverse the heparin. Hemostasis was completely achieved. We then irrigated and confirmed full hemostasis. We then closed in layers with
2-0 Vicryl layer to reapproximate the sternocleidomastoid muscle, followed by 3-0 Vicryl platysma muscle running layer, followed by 4-0 Monocryl subcuticular stitch. Dermabond was applied. The patient tolerated procedure well. He awoke moving all
extremities to command. All sponge, needle, instrument counts were correct at the end of the case. Patient was transported to the recovery room in stable condition.
[2024-12-10 15:16] LABS: Hematocrit 35.3 % (39.0-52.0); Hemoglobin 12.3 g/dL (13.0-18.0); Mean Corp Hgb Conc. 34.8 g/dL (33.0-37.0); Mean Corpuscular Hgb 31.6 pg (27.0-31.0); Mean Corpuscular Volume 90.7 fL (80.0-94.0); Mean Platelet Volume 9.9 fL (7.4-10.4); Platelet Count 217 10^3/uL (130-400); Red Blood Cell Count 3.89 10^6/uL (4.70-6.10); Red Cell Dist. Width 12.8 % (11.5-14.5); White Blood Cell Count 10.6 10^3/uL (4.8-10.8)
[2024-12-10 15:28] LABS: INR 1.08; PT 14.6 Sec (11.4-14.6)
[2024-12-10] MEDS: DILAUDID 0.5 MG IV (15:32)
[2024-12-10 15:35] LABS: Blood Urea Nitrogen 18 mg/dl (9-20); Calcium 8.7 mg/dl (8.4-10.2); Carbon Dioxide 20 mmol/L (22-30); Chloride 114 mmol/L (98-107); Estimated Creatinine Clearance 63 ml/min; Glucose 120 mg/dl (70-99); Potassium 4.9 mmol/L (3.5-5.1); Sodium 139 mmol/L (135-145); eGFR > 60.00
[2024-12-10] MEDS: DILAUDID 0.25 MG IV (15:47)
[2024-12-10 16:17] LABS: Glucose - Point of Care 97 mg/dl (70-99)
[2024-12-10] MEDS: CARDENE 200 IV ×2 (16:20→19:41)
[2024-12-10] MEDS: NSS 1000 IV (16:26)
[2024-12-10] MEDS: SINGULAIR 10 MG PO (17:06)
[2024-12-10] MEDS: CRESTOR 20 MG PO (17:06)
--- NOTE | 2024-12-10 17:18 | PTCARENOTE ---
pt received from pacu at 1600- pt aox4, nsr on monitor, room air, left neck incision with surgical glue glen c/d/i with ice to site. pt with minimal complaints of pain, right radial saji zeroed and functioning. systolic reading 180s-190s, cardene
gtt started as per order, Mya OSORIO made aware. and sons at bedside, all educated and verbalized understanding. all safety precautions in place, call michele within reach.
--- NOTE | 2024-12-10 17:20 | PTCARENOTE ---
1600- neuro assessment completed with merchandising internship- pt with slight left tongue deviation unchanged from pacu- vascular was made aware by merchandising internship. neuro wnl. pt able to turn and reposition self.
[2024-12-10] MEDS: TYLENOL 650 MG PO (20:38)
[2024-12-11] VITALS: BP 104/57
[2024-12-11 03:23] LABS: Hematocrit 34.3 % (39.0-52.0); Hemoglobin 11.9 g/dL (13.0-18.0); Mean Corp Hgb Conc. 34.7 g/dL (33.0-37.0); Mean Corpuscular Hgb 31.4 pg (27.0-31.0); Mean Corpuscular Volume 90.5 fL (80.0-94.0); Mean Platelet Volume 10.5 fL (7.4-10.4); Platelet Count 224 10^3/uL (130-400); Red Blood Cell Count 3.79 10^6/uL (4.70-6.10); Red Cell Dist. Width 12.5 % (11.5-14.5); White Blood Cell Count 9.8 10^3/uL (4.8-10.8)
[2024-12-11 03:33] LABS: APTT 25.3 Sec (23.4-35.0); INR 1.05; PT 14.2 Sec (11.4-14.6)
[2024-12-11 03:50] LABS: Blood Urea Nitrogen 21 mg/dl (9-20); Calcium 9.2 mg/dl (8.4-10.2); Carbon Dioxide 20 mmol/L (22-30); Chloride 115 mmol/L (98-107); Estimated Creatinine Clearance 56 ml/min; Glucose 121 mg/dl (70-99); Sodium 138 mmol/L (135-145); eGFR > 60.00
[2024-12-11 04:00] VITALS: BP 121/60
[2024-12-11] MEDS: NSS 1000 IV (04:03)
--- NOTE | 2024-12-11 05:19 | PTCARENOTE ---
Neuro assessment f5r---Rw1, B/L UE weak and slight tremor with grasp, B/L LE equally strong. Received on cardene, titrated off. Remains on IVF. L neck incision well approximated, soft, tender to palpation. Pain varied from 1-3 overnight.
[2024-12-11] MEDS: TYLENOL 650 MG PO (05:49)
--- NOTE | 2024-12-11 07:18 | W.PN.VS ---
Addendum entered and electronically signed by Andrew Roberson MD 12/11/24 07:29:
Seen and examined with MARY Martin. Agree with findings as noted below. No new complaints. Left neck incision clean dry and intact. No hematoma. Neurologically no focal deficits. Moves all extremities well. Tongue midline. Plan/as discussed
and noted below.
Original Note:
Today's Communication / Plan
-
Seen and assessed with Dr. Roberson
Assessment/Plan
-
POD 1 left CEA
Plan:
-DC A-line
-DC IV fluids
-Out of bed/ambulate
-P.o. medications
-Increase diet
-Likely DC later today
Subjective Data
-
Date of Service: December 11, 2024
Patient seen at bedside this a.m. with Dr. Roberson. Patient offers no complaints this time. No events overnight.
Objective Data
-
Vital Signs
Temp Pulse Resp BP Pulse Ox
98.3 F 79 26 121/60 95
12/11/24 03:31 12/11/24 06:00 12/11/24 06:00 12/11/24 04:00 12/11/24 06:00
Intake and Output
12/10/24 12/11/24 12/12/24
06:59 06:59 06:59
Intake Total 1457.5 / 1457.5
Output Total 1100 / 1100
Balance 357.5 / 357.5
Intake:
IV fluids (Total) 1457.5 / 1457.5
cardene 337.5 / 337.5
ivf 1120 / 1120
Output:
Urine, Voided 1100 / 1100
Lab Results
12/11/24 03:02
12/11/24 03:02
Calcium 9.2 mg/dl (8.4-10.2) 12/11/24 03:02
Physical Exam
-
AAO x 3
No tachypnea on room air
No tachycardia
Abdomen soft
Neck site clean, dry, intact, soft, flat
Moves all extremities
Tongue midline
[2024-12-11 08:00] VITALS: BP 120/64
[2024-12-11] MEDS: SYMBICORT 160/4.5 MCG INHALER 2 PUFF INH (08:03)
--- NOTE | 2024-12-11 08:15 | CON.INTV ---
Consultation
Consultation Request
Date/Time Consultation Requested: 12/10/2024
Date/Time Consultation Performed: 12/11/2024
Requesting Provider: Andrew Roberson
Performing Provider: Sammie Melgar
Reason for Consultation: CEA
Medical History
-
Chief Complaint: Confusion
History of Present Illness:
Patient is a very pleasant 79-year-old gentleman who was brought to the hospital about a week ago for confusion. Subsequently workup included a CT head and a CTA of head and neck which showed critical left-sided carotid artery stenosis. Patient
subsequently had an MRI which was suggestive of numerous small densities suggestive of acute/subacute stroke. Patient was discharged on aspirin, Plavix and statins. He was subsequently evaluated by vascular surgery service and carotid
endarterectomy was recommended. On 12/10, he was admitted to the hospital for endarterectomy and postsurgery was admitted to ICU for further management. Train Attendant consult was requested for further input.
Past Medical History: Reports Other
Additional Past Medical History:
Hyperlipidemia
Asthma
BPH
Past Surgical History: Reports Other
Additional Past Surgical History:
TURP
Social History
Tobacco: Non-smoker
Alcohol: Occasional
Drug: None
Personal:
Living: With Family
Employment: Retired
Family History
Family History: Not pertinent
Allergies / Home Medications
Allergies / Home Medications
Allergies
Allergy/AdvReac Type Severity Reaction Status Date / Time
pollen extracts Allergy cough, Verified 12/08/24 11:15
itchy eye
Home Medications
�Medication �Instructions �Recorded �Confirmed �Last Taken �Type
aspirin 81 mg tablet,delayed 81 mg PO DAILY Blood Clot 12/03/24 12/10/24 12/10/24 History
release Prevention/Tx
fluticasone furoate 200 1 inh inhalation R DAILY 12/03/24 12/10/24 12/10/24 History
mcg-vilanterol 25 mcg/dose Lung/Breathing Issues
inhalation powder (Breo Ellipta)
loratadine 10 mg tablet (Claritin) 10 mg PO DAILYPRN PRN allergies 12/03/24 12/10/24 12/09/24 History
montelukast 10 mg tablet 10 mg PO HS Allergies 12/03/24 12/10/24 12/09/24 History
(Singulair)
clopidogrel 75 mg tablet 75 mg PO DAILY #21 tabs 12/04/24 12/10/24 12/10/24 Rx
rosuvastatin 20 mg tablet 20 mg PO QPM #30 tabs 12/04/24 12/10/24 12/09/24 Rx
Review of Systems
-
Hematologic/Lymphatic: Other (No new symptoms reported)
Vitals / Labs / Diagnostic Testing
Vital Signs
Temp Pulse Resp BP Pulse Ox
98.3 F 75 16 121/60 97
12/11/24 03:31 12/11/24 08:04 12/11/24 08:04 12/11/24 04:00 12/11/24 08:04
Lab Data
12/11/24 03:02
12/11/24 03:02
Laboratory Results
12/10/24 12/10/24 12/11/24
09:44 15:06 03:02
PT 13.2 14.6 14.2
INR 0.96 1.08 1.05
APTT 24.7 27.0 25.3
Diagnostic Testing:
Physical Exam
-
HEENT: Normocephalic
Cardiovascular: S1/S2
Respiratory: Clear
GI: Soft and Non Distended
Neurology: Awake and Alert
Skin: Warm
General: Comfortable
Assessment
-
Patient is s/p left carotid artery endarterectomy by vascular surgery service, POD #1
Continue observation following procedure
Follow neurovascular checks per protocol
ASA, clopidogrel and rosuvastatin.
Follow BP monitoring and parameters as set by primary team
No cardiac history
Monitor on telemetry
Pain control per protocol
RASS goal 0
Reported history of asthma, no current exacerbation. Currently on Symbicort and montelukast.
Diet advancement per protocol
Aspiration precautions
DVT prophylaxis with subcu heparin.
Creat at baseline, follow UO
Critical I/Os
Replete electrolytes as needed
No signs/symptoms suspicious for infectious etiology at this time
Will observe off antibiotics for now
Follow temperatures/CBC
Hb and platelets postoperatively stable, mild drifting hemoglobin noted
Encouraged OOB/PT/OT/ambulation once cleared by surgical team
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 S/p CEA, currently on aspirin, Plavix and statins
# History of asthma. Currently on Symbicort and montelukast. Outpatient follow-up recommended. Patient follows up with Dr. Norris, will continue Breo at home along with as needed albuterol, and will follow-up with Dr. Norris as scheduled.
Critical Care time [01] mins -- The patient is admitted for acute critical illness for the treatment of vital organ failure and/or prevention of further life-threatening conditions. Total care includes time spent in review of history, physical exam,
medications, hemodynamic/ventilator parameters, laboratory data, imaging and discussion with house staff, pharmacy, respiratory therapy, pairing machine operator, and nursing.
Data:
MRI Brain: 11/2024: Numerous scattered nonhemorrhagic acute/subacute infarcts throughout the left MCA territory distribution and to a lesser degree within the left anterior cerebral artery distribution. Findings may be of embolic etiology.
Underlying advanced chronic senescent changes.
CT Head 11/2024: No acute abnormality
CTA Head: Atherosclerotic calcifications of the bilateral cavernous and paraclinoid internal carotid arteries with resultant mild stenosis of the right paraclinoid ICA. No aneurysm.
CTA Neck: There is mixed density atherosclerotic plaque of the left carotid bifurcation/proximal left internal carotid artery with resultant near total occlusion of the proximal left ICA.
--- NOTE | 2024-12-11 08:37 | PTCARENOTE ---
Dr. Roberson aware of pt with hand tremors, no new orders.
[2024-12-11 09:23] VITALS: BP 156/75
[2024-12-11] MEDS: ASPIR LOW (ENTERIC COATED) 81 MG PO (09:35)
[2024-12-11] MEDS: PLAVIX 75 MG PO (09:35)
[2024-12-11] MEDS: HEPARIN 5000 UNITS SC (09:35)
--- NOTE | 2024-12-11 09:43 | PTCARENOTE ---
pt received from previous rn-aox4, tongue deviation improved, pt with noted hand tremors dr. girard aware, nsr to st on monitor. right radial saji removed and pressure dressing applied, ivf discontinued per order. pt ambulating around unit without
difficulty, no complaints. see vitals as charted. all safety precautions in place
--- NOTE | 2024-12-11 09:43 | PTCARENOTE ---
pt received from previous rn-aox4, tongue deviation unchanged, pt with noted hand tremors dr. girard aware, nsr to st on monitor. right radial saji removed and pressure dressing applied, ivf discontinued per order. pt ambulating around unit without
difficulty, no complaints. see vitals as charted. all safety precautions in place
--- NOTE | 2024-12-11 09:51 | W.DS.TRANS ---
DC Summary - Mechanical Sound Technician
-
Discharge Instructions:
Discharge Diagnosis/Procedures Left carotid endarterectomy
Diet As tolerated
Activity No strenuous activity
Driving Restrictions Not until seen by your Dr
Bathing Restrictions OK to Shower
Instructions:
Stand-Alone Forms: Vascular Surg Discharge Instr
Changes to Home Medications: No
Discharge Medications:
DC Medications w/original date entered in [employer]
aspirin 81 mg tablet,delayed release 81 mg PO DAILY Blood Clot Prevention/Tx 12/03/24
fluticasone furoate 200 mcg-vilanterol 25 mcg/dose inhalation powder (Breo Ellipta) 1 inh inhalation R DAILY Lung/Breathing Issues 12/03/24
loratadine 10 mg tablet (Claritin) 10 mg PO DAILYPRN PRN allergies 12/03/24
montelukast 10 mg tablet (Singulair) 10 mg PO HS Allergies 12/03/24
clopidogrel 75 mg tablet 75 mg PO DAILY #21 tabs 12/04/24
rosuvastatin 20 mg tablet 20 mg PO QPM #30 tabs 12/04/24
Home Medication Changes
Pending Results: No
--- NOTE | 2024-12-11 10:03 | PTCARENOTE ---
jessica forbes photographer's model aware pt tachy up to 110 walking, pt remains without complaints. left neck incision c/d/i, soft to touch.
[2024-12-11 10:16] VITALS: BP 129/71
--- NOTE | 2024-12-11 10:21 | CM ---
Initial assessment completed with patient with and son in room. Patient lives with his in a 2 story home plus basement with B/B on 2nd and 1/2 bath on 1st, 2 steps to enter. 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 Does
drive. No DME or services in the home. Support system is and 2 sons. Does have a HC POA. Was in the [employer]. PCP is Dr. Johnnie Donahue with [facility] in [place] and Pharmacy is [facility] on [address] in [place]. Discharge POC: Home with no
needs.
--- NOTE | 2024-12-11 10:31 | CM ---
Patient has been medically cleared for discharge to home with no additional skilled needs. IMM was signed on 12/10/24. Family will transport home.
--- NOTE | 2024-12-11 10:32 | PTCARENOTE ---
pt, and son given discharge instructions, all verbalized understanding. bilateral ivs removed, pressure dressings applied. pt taken down to car by rn.
--- NOTE | 2024-12-11 15:39 | W.DCSUMMARY ---
Discharge Summary
Discharge Data
Date of Admission: 12/10/24
Date of Discharge: 12/11/24
-
Pending Results: No
Hospital Course
Attending: Da
Consultants: Pulmonary medicine
Allergies: Pollen
Procedure with date: 12/10/24: Left carotid endarterectomy with bovine pericardial patch angioplasty and intraoperative EEG/SSEP monitoring. Extensive dissection procedure/prolonged dissection of carotid/carotid bifurcation that was encased in
inflammatory rind
History of present illness: The patient is an 79 -year-old male with multiple medical conditions including: carotid stenosis, HLD, asthma, BPH, TURP. Patient presented on 12/10/24 for scheduled procedure with Dr. Roberson. Patient presented at baseline
health with no reports of recent illness or trauma.
Hospital Course: Briefly, the patient underwent scheduled CEA without complications, and recovered in PACU. Following recovery phase one and two patient was transferred to intensive care unit per protocol for continued hemodynamic monitoring.
Computational Biologist consulted to aid in medical management from a critical care perspective. POD #1 (12/11/24) Patient neurologically intact, face symmetrical, and tolerating PO diet. Surgical neck site clean, dry, and intact with suture line well
approximated and soft. No evidence of hematoma. Arterial line and IV fluids discontinued. Patient able to ambulate without difficulty or incident. Patient stable for discharge to home.
Prescriptions and follow up appointment are included in the DC summary senior contracts administrator note. All instructions were given to the patient in both written and verbal form and the patient expressed understanding.
Discharge Plan
-
Patient Disposition: Home (Routine Discharge)
Discharge Diagnosis/Procedures: Left carotid endarterectomy
Condition: Good
Diet: As tolerated
Activity: No strenuous activity
Driving Restrictions: Not until seen by your Dr
Bathing Restrictions: OK to Shower
Activity Restrictions/Additional Instructions:
Neurology
Phoebe Hicks MD
[facility]
[phone]
Stand Alone Forms: Vascular Surg Discharge Instr
Referrals:
Gayatri,Amalia, PA-C [Specified Professional Personl] - 12/23/24 9:30 am (Vascular surgery office follow-up)
Johnnie Donahue MD [Primary Care Provider] -
Prescriptions:
Continued
montelukast [Singulair] 10 mg Tablet
10 mg PO HS
aspirin 81 mg Tablet,Delayed Release (Dr/Ec)
81 mg PO DAILY
loratadine [Claritin] 10 mg Tablet
10 mg PO DAILYPRN PRN (Reason: allergies)
fluticasone furoate-vilanterol [Breo Ellipta] 200-25 mcg/dose Blister With Device
1 inh INHALATION R DAILY
clopidogrel 75 mg Tablet
75 mg PO DAILY Qty: 21 0RF
rosuvastatin 20 mg Tablet
20 mg PO QPM Qty: 30 0RF
Discharge Orders:
Discharge Patient (As Directed); Ordered 12/11/24
Ordered By: Kasandra Martin
Discharge Date and Time
Discharge Date/Time: 12/11/24 10:30
Print Language: [id number]
== END 2024-12-11 10:30 | disposition home or self-care (01) | DRG 39 ==
LOC: ICU 08:27
PROVIDERS: Nurse Practitioner Acute Care; ADMITTING PHYSICIAN Surgery Vascular Surgery; CONSULT PHYSICIAN Internal Medicine; PRIMARYCARE PHYSICIAN Internal Medicine
PROC: 03UL0KZ Supplement Left Internal Carotid Artery with Nonautologous Tissue Substitute, Open Approach (ICD-10-PCS; 2024-12-10)
PROC: 03CL0ZZ Extirpation of Matter from Left Internal Carotid Artery, Open Approach (ICD-10-PCS; 2024-12-10)
PROC: 03CJ0ZZ Extirpation of Matter from Left Common Carotid Artery, Open Approach (ICD-10-PCS; 2024-12-10)
DX: I63.232 Cerebral infarction due to unspecified occlusion or stenosis of left carotid arteries (principal); N40.0 Benign prostatic hyperplasia without lower urinary tract symptoms; E78.5 Hyperlipidemia, unspecified; J45.909 Unspecified asthma, uncomplicated; Z79.02 Long term (current) use of antithrombotics/antiplatelets; Z79.82 Long term (current) use of aspirin
CPT/HCPCS: 88304; 88311; 35301; 80048; 82962; 85027; 85610; 85730; 86850; 86900; 86901; 94640; 95938

== ENCOUNTER → 2025-02-02 14:15 | Outpatient (REF) | payer MEDICARE, OTHER, SELFPAY | LOC: RAD 14:15 | PROVIDERS: ATTENDING PHYSICIAN Surgery Vascular Surgery; FAMILY PHYSICIAN Internal Medicine | DX: I65.22 Occlusion and stenosis of left carotid artery (principal) | CPT/HCPCS: 93880 ==